=== PATIENT | female | born 1965 | race Caucasian/White ===

== ENCOUNTER 2023-08-29 14:36 | Emergency (ER) | payer BC ==
[~2023-08-29] VITALS: Ht 160 cm; Wt 68.0 kg
[2023-08-29] MEDS ORDERED: ARMOUR THYROID30 M1 PO (16:20)
[2023-08-29] MEDS ORDERED: HYDROCHLOROTHIA25 MG PO (16:20)
[2023-08-29] MEDS ORDERED: PRO-FAST SR37.5 MG PO (16:21)
[2023-08-29] MEDS ORDERED: VALACYCLOVIR1000 MG PO (16:21)
[2023-08-29] MEDS ORDERED: STOOL SOFTENER50 MG PO (16:21)
[2023-08-29] MEDS ORDERED: OZEMPIC1 MG/0.71 SQ (16:21)
== END 2023-08-29 17:26 | disposition home or self-care (01) ==
LOC: ER 14:36
DX: R21 Rash and other nonspecific skin eruption (principal)